=== PATIENT | female | born 1960 | race Caucasian/White ===

== ENCOUNTER 2020-11-28 08:27 | Outpatient (CLI) | payer MEDICARE ==
[2020-11-28] MEDS ORDERED: SULF-23 PO (09:25)
[2020-11-28] MEDS ORDERED: PRAV20TA2 PO (09:26)
[2020-11-28] MEDS ORDERED: PHEN-583 PO (09:26)
[2020-11-28] MEDS ORDERED: TAMS-11 PO (09:26)
[2020-11-28] MEDS ORDERED: CHOL10003 PO (09:26)
[2020-11-28] MEDS ORDERED: GABA300C PO (09:26)
[2020-11-28] MEDS ORDERED: CITA40TA5 PO (09:26)
[2020-11-28] MEDS ORDERED: HYDR50TA99 PO (09:26)
[2020-11-28] MEDS ORDERED: ASCO100018 PO (09:26)
[2020-11-28] MEDS ORDERED: HYDR-2214 PO (09:26)
[2020-11-28] MEDS ORDERED: TOPI25TA8 PO (09:26)
[2020-11-28] MEDS ORDERED: LORA1TAB46 PO (09:26)
[2020-11-28] MEDS ORDERED: LIPA1CAP45 PO (09:26)
[2020-11-28] MEDS ORDERED: potassium citrate PO (09:26)
[2020-11-28] MEDS ORDERED: IBUP-1223 PO (09:26)
[2020-11-28] MEDS ORDERED: FAMO20TA7 PO (09:26)
[2020-11-28 09:37] LABS: BASOPHILS % (AUTO) 1 % (0-1); EOSINOPHILS % (AUTO) 3 % (1-7); LYMPHOCYTES % (AUTO) 22 % (22-44); MEAN CORPUSCULAR HGB CONC 33.3 g/dL (32.4-35.8); MEAN PLATELET VOLUME 8.8 fL (7.4-10.4); MONOCYTES % (AUTO) 9 % (2-9); NEUTROPHILS % (AUTO) 65 % (42-75); PLATELET COUNT 264 x10^3/uL (130-400); RED BLOOD COUNT 4.47 x10^6/uL (3.82-5.3); RED CELL DISTRIBUTION WIDTH 15.5 % (9.6-15.2)
[2020-11-28 09:40] LABS: MD NO
[2020-11-28 09:45] LABS: MICROSCOPIC INDICATED
[2020-11-28 09:47] LABS: INTERNATIONAL NORMALIZED RATIO 0.91 (0.93-1.1); PROTHROMBIN TIME 9.8 Seconds (9.6-11.5)
[2020-11-28 09:49] LABS: ANION GAP 3 mmol/L (5-15); CALCIUM 9.7 mg/dL (8.5-10.1); CHLORIDE 115 mmol/L (98-107)
[2020-11-28 09:50] LABS: CREATININE 1.35 mg/dL (0.55-1.02)
== END 2020-11-28 23:59 | disposition home or self-care (01) ==
LOC: STAR 08:27
PROVIDERS: ATTEND Urology
DX: Z01.812 Encounter for preprocedural laboratory examination (principal); Z20.822 Contact with and (suspected) exposure to COVID-19; N20.0 Calculus of kidney; Z79.899 Other long term (current) drug therapy
CPT/HCPCS: 36415; 80048; 81001; 85025; 85610; 85730; 87086; U0003

== ENCOUNTER 2020-12-03 07:48 | Day surgery (SDC) | payer MEDICARE ==
[~2020-12-03] VITALS: Ht 167.6 cm; Wt 89.3 kg
[~2020-12-03 07:48] MED LIST: ASCO100018 PO; CHOL10003 PO; CITA40TA5 PO; FAMO20TA7 PO; GABA300C PO; HYDR-2214 PO; HYDR50TA99 PO; IBUP-1223 PO; LIPA1CAP45 PO; LORA1TAB46 PO; PHEN-583 PO; PRAV20TA2 PO; SULF-23 PO; TAMS-11 PO; TOPI25TA8 PO; potassium citrate PO
[2020-12-03 08:23] VITALS: BP 116/79
[2020-12-03] MEDS ORDERED: CHLORHEXIDINE 15 ML UDC ONE (08:25)
[2020-12-03] MEDS ORDERED: LACTATED RINGERS 1,000 ML IV SCH (08:30)
[2020-12-03] MEDS ORDERED: CHLORHEXIDINE 15 ML UDC PO ONE (08:30)
[2020-12-03] MEDS ORDERED: PROPOFOL 10 MG/ML, 50ML ONE (09:03)
[2020-12-03] MEDS ORDERED: OMNIPAQUE 350 MG/ML, 50 ML BOTTLE ONE (09:33)
[2020-12-03] MEDS ORDERED: FENTANYL PF 100 MCG/2ML ONE ×2 (09:46→11:03)
[2020-12-03] MEDS ORDERED: LIDOCAINE-MPF 2% ,5ML ONE (09:47)
[2020-12-03] MEDS ORDERED: DEXAMETHASONE 4 MG/ML, 1ML ONE (09:47)
[2020-12-03] MEDS ORDERED: ONDANSETRON 2MG/ML, 2ML ONE (09:47)
[2020-12-03] MEDS ORDERED: LABETALOL 5MG/ML, 20ML IV PRN (10:30)
[2020-12-03] MEDS ORDERED: morphine SULFATE 10 MG/ML, 1ML IV PRN (10:30)
[2020-12-03] MEDS ORDERED: METOCLOPRAMIDE 5 MG/ML, 2ML IV PRN (10:30)
[2020-12-03] MEDS ORDERED: MIDAZOLAM 1 MG/ML, 2ML IV PRN (10:30)
[2020-12-03] MEDS ORDERED: hydrALAzine 20 MG/ML, 1ML IV PRN (10:30)
[2020-12-03] MEDS ORDERED: MEPERIDINE/PF 25MG/0.5ML IVPush PRN (10:30)
[2020-12-03] MEDS ORDERED: HYDROmorphone 2 MG/ML, 1ML IVPush PRN (10:30)
[2020-12-03] MEDS ORDERED: OXYcodone 5 MG/5 ML ORAL.SOL UDC PO PRN (10:30)
[2020-12-03] MEDS ORDERED: ONDANSETRON 2MG/ML, 2ML IVPush PRN (10:30)
[2020-12-03] MEDS ORDERED: PROMETHAZINE 25 MG/ML, 1ML IV PRN (10:30)
[2020-12-03] MEDS ORDERED: ALBUTEROL SULFATE 2.5 MG/3 ML NPPB PRN (10:30)
[2020-12-03] MEDS: FENTANYL PF 100 MCG/2ML IV PRN ×2 (11:04→11:10)
[2020-12-03] MEDS: OXYcodone 5 MG/5 ML ORAL.SOL UDC PO PRN ×2 (12:14→12:47)
== END 2020-12-03 13:35 | disposition home or self-care (01) ==
LOC: OUT 07:48
PROVIDERS: ATTEND Urology
DX: N20.0 Calculus of kidney (principal); G20 Parkinson's disease; I10 Essential (primary) hypertension; M19.90 Unspecified osteoarthritis, unspecified site; Z79.899 Other long term (current) drug therapy; Z88.8 Allergy status to other drugs, medicaments and biological substances
CPT/HCPCS: 52353; 74018; 82360; 88300; C1758; C1769; J1100; J2405; J2704; J3010; J7120; 76000; Q9967